=== PATIENT | male | born 1995 | race Caucasian/White ===

== ENCOUNTER 2017-06-25 19:38 | Inpatient (IN) | payer OTHER ==
[2017-06-25] MEDS ORDERED: LORazepam 2 MG/ML INJ IM STA (20:32)
--- NOTE | 2017-06-25 20:51 | ED ---
Psych HPI - General Chief Complaint: Psychiatric Symptoms Stated Complaint: Mental Health Time Seen by Provider: 06/25/17 19:53 Source: patient Mode of arrival: ambulatory - History of Present Illness Initial Comments: Is a 21-year-old male who presents emergency department for depression and suicidal ideation. The patient states is been dealing with depression for most of his life and has had thoughts of killing himself most of his life however recently it became worse. His girlfriend called the police today because she was having thoughts of wanting to jump off a bridge into the patient states that he did smoke marijuana and drinking today. He states that nothing seemed to just trigger this. He states he just feels very depressed from life and that he wants to end his life. Denies any history of being seen by psychiatrist. No inpatient hospitalizations. No other acute complaints at this time. - Related Data Home Medications Medication Instructions Recorded Confirmed Lansoprazole (Unknown Dose) 1 tab PO DAILY 06/25/17 06/25/17 Allergies Allergy/AdvReac Type Severity Reaction Status Date / Time No Known Allergies Allergy Verified 06/25/17 20:07 Review of Systems ROS Statement: Those systems with pertinent positive or pertinent negative responses have been documented in the HPI. ROS Other: All systems not noted in ROS Statement are negative. Past Medical History Additional Past Medical History / Comment(s): cysts History of Any Multi-Drug Resistant Organisms: None Reported Past Surgical History: No Surgical Hx Reported Past Psychological History: No Psychological Hx Reported Smoking Status: Current every day smoker Past Alcohol Use History: Heavy Past Drug Use History: Marijuana General Exam - General Exam Comments Initial Comments: Constitutional: Awake alert Appears comfortable Head: Normocephalic atraumatic Eyes: no conjunctival injection No scleral icterus EOMI Neck: No JVD Supple Heart: Regular rate rhythm normal S1-S2 no murmurs Lungs: Clear to auscultation bilaterally No wheezing No rales Abdomen: Soft nondistended nontender Extremities: Non edematous DP pulses intact Radial pulses intact Neuro: A&Ox3 No focal neurologic deficits Psych: The patient is depressed, suicidal Limitations: no limitations Course Vital Signs 06/25/17 19:45 Temperature 98.0 F Pulse Rate 83 Respiratory 16 Rate Blood Pressure 141/88 O2 Sat by Pulse 97 Oximetry Medical Decision Making - Medical Decision Making Is a 21-year-old came for depression and suicidal ideation. The patient was evaluated by EPS who will admit the patient under their service. Certification was performed. Further orders per EPS. - Lab Data Lab Results 06/25/17 Range/Units 20:47 Urine Opiates Screen Not Detected (NotDetected) Ur Oxycodone Screen Not Detected (NotDetected) Urine Methadone Screen Not Detected (NotDetected) Ur Propoxyphene Screen Not Detected (NotDetected) Ur Barbiturates Screen Not Detected (NotDetected) U Tricyclic Antidepress Not Detected (NotDetected) Ur Phencyclidine Scrn Not Detected (NotDetected) Ur Amphetamines Screen Not Detected (NotDetected) U Methamphetamines Scrn Not Detected (NotDetected) U Benzodiazepines Scrn Not Detected (NotDetected) Urine Cocaine Screen Not Detected (NotDetected) U Marijuana (THC) Screen Detected H (NotDetected) Disposition Clinical Impression: Depression, Suicidal ideation Disposition: ADMITTED IP TO THIS [facility] Condition: Stable
[2017-06-25 21:13] LABS: Amphetamine Screen,Urine Not Detected (NotDetected); Barbiturate Screen,Urine Not Detected (NotDetected); Benzodiazepines Screen,Urine Not Detected (NotDetected); Cocaine Screen,Urine Not Detected (NotDetected); Methadone Screen, Urine Not Detected (NotDetected); Opiate Screen,Urine Not Detected (NotDetected); Oxycodone Screen, Urine Not Detected (NotDetected); Phencyclidine Screen,Urine Not Detected (NotDetected); Tricyclic Antidepressant,Urine Not Detected (NotDetected); Urn Cannabinoid Scrn Detected (NotDetected)
[2017-06-25] MEDS ORDERED: ZIPRASIDONE 20 MG VIAL IM PRN (21:33)
[2017-06-25] MEDS ORDERED: MAG HYDROX/AL HYDROX/SIMETH 30 ML CUP PO PRN (21:33)
[2017-06-25] MEDS ORDERED: MAGNESIUM HYDROXIDE 2,400 MG/10 ML CUP PO PRN (21:33)
[2017-06-25] MEDS ORDERED: ACETAMINOPHEN TAB 325 MG TAB PO PRN (21:33)
[2017-06-25] MEDS ORDERED: LORazepam 2 MG/ML INJ IM PRN (21:37)
[2017-06-25 22:13] VITALS: RESP 16
--- NOTE | 2017-06-25 22:47 | P.CONS ---
History of Present Illness - Reason for Consult Consult date: 06/25/17 Medical management - Chief Complaint Suicidal - History of Present Illness Patient states that he has been suicidal and he was thinking about that for the last few days patient states that he took a few tablets of ibuprofen not more than 8 tablets and alcohol currently is not having chest pain or shortness of breath states that he still depressed patient initially was not very cooperative but currently he is cooperative with the exam still tearful Review of systems since systems has been reviewed all negative and positive findings as per HPI Past medical history depression and possible peptic ulcer Social history smokes states that he drinks whenever he can ALLERGIES NO KNOWN DRUG ALLERGIES Surgical history none Constitutional: No acute distress, Eyes: Anicteric sclerae, moist conjunctiva, ENMT: NC/AT Oropharynx clear, no erythema, exudates Neck: Supple, FROM, no masses, or JVD No carotid bruits No thyromegaly Lungs: Clear to auscultation Clear to percussion Normal respiratory effort, no accessory muscle use Cardiovascular: Heart regular in rate and rhythm, No murmurs, gallops, or rubs No peripheral edema Abdominal: Soft Nontender, no guarding, Skin: Normal temperature, tone, texture, turgor No induration No subcutaneous nodules No rash, lesions No ulcers Extremities: No digital cyanosis No clubbing Pedal pulses intact and symmetrical Radial pulses intact and symmetrical Normal gait and station No calf tenderness Psychiatric: Depressed Neuro: Muscles Strength 5/5 in all 4 extremities Sensation to light touch grossly present throughout Cranial nerves II-XII grossly intact No focal sensory deficits Vital Signs - 24 hr 06/25/17 06/25/17 06/25/17 19:45 21:25 22:12 Temperature 98.0 F 97.2 F L Pulse Rate 83 93 Pulse Rate [ 87 Right Sitting Brachial] Respiratory 16 18 16 Rate Blood Pressure 141/88 151/75 Blood Pressure 131/97 [Right Arm Sitting] O2 Sat by Pulse 97 96 100 Oximetry Assessment and plan suicidal currently stable and not agitated very tearful management as primary team Possible history of alcohol abuse currently no signs or symptoms of withdrawal patient may need to be started on withdrawal protocol if needed and if the patient will not be discharged soon Major depression Question about drug overdose patient states he didn't take more than 8 tablets of ibuprofen will check CMP and CBC Past Medical History Additional Past Medical History / Comment(s): cysts History of Any Multi-Drug Resistant Organisms: None Reported Past Surgical History: No Surgical Hx Reported Smoking Status: Current every day smoker Medications and Allergies Home Medications Medication Instructions Recorded Confirmed Type Lansoprazole (Unknown Dose) 1 tab PO DAILY 06/25/17 06/25/17 History Allergies Allergy/AdvReac Type Severity Reaction Status Date / Time No Known Allergies Allergy Verified 06/25/17 22:16 Physical Exam Vitals: Vital Signs Temp Pulse Pulse Resp BP BP Pulse Ox 06/25/17 22:12 97.2 F L 87 16 131/97 100 06/25/17 21:25 93 18 151/75 96 06/25/17 19:45 98.0 F 83 16 141/88 97 Intake and Output 06/25/17 06/25/17 06/25/17 06:59 14:59 22:59 Other: Weight 74.843 kg Results Labs: Abnormal Lab Results - Last 24 Hours (Table) 06/25/17 Range/Units 20:47 U Marijuana (THC) Screen Detected H (NotDetected)
[2017-06-26] MEDS: NICOTINE 14MG/24HR PATCH TRANSDERM SCH ×2 (05:58→09:26)
[2017-06-26 08:24] LABS: Basophils # (A) 0.1 k/uL (0-0.2); Basophils % (A) 1 %; Eosinophils # (A) 0.1 k/uL (0-0.7); Eosinophils % (A) 2 %; HCT 48.8 % (39.0-53.0); HGB 16.5 gm/dL (13.0-17.5); Lymphocytes # (A) 2.2 k/uL (1.0-4.8); Lymphocytes % (A) 34 %; MCH 29.1 pg (25.0-35.0); MCHC 33.8 g/dL (31.0-37.0); MCV 86.1 fL (80.0-100.0); Mean Platelet Volume 7.3; Monocytes # (A) 0.4 k/uL (0-1.0); Monocytes % (A) 7 %; Neutrophils # (A) 3.5 k/uL (1.3-7.7); Neutrophils % (A) 54 %; Platelet Count 177 k/uL (150-450); RBC 5.67 m/uL (4.30-5.90); RDW 12.9 % (11.5-15.5); WBC 6.4 k/uL (3.8-10.6)
[2017-06-26 08:33] LABS: ALT 25 U/L (21-72); AST 20 U/L (17-59); Albumin 4.8 g/dL (3.5-5.0); Alkaline Phosphatase 73 U/L (38-126); Anion Gap 15 mmol/L; Blood Urea Nitrogen 18 mg/dL (9-20); Carbon Dioxide 24 mmol/L (22-30); Chloride 103 mmol/L (98-107); Glucose 111 mg/dL (74-99); Potassium 4.5 mmol/L (3.5-5.1); Sodium 142 mmol/L (137-145); Total Bilirubin 0.6 mg/dL (0.2-1.3); Total Protein 7.9 g/dL (6.3-8.2)
[2017-06-26] MEDS: FLUoxetine HCL 10 MG CAP PO SCH (09:29)
[2017-06-26] MEDS: ARIPiprazole 2 MG TAB PO SCH (09:29)
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
[2017-06-26] MEDS: LORazepam 1 MG TAB PO PRN (17:54)
[2017-06-26] MEDS: MELATONIN 1 MG TAB PO SCH (20:06)
[2017-06-27] MEDS: ARIPiprazole 2 MG TAB PO SCH (08:50)
[2017-06-27] MEDS: FLUoxetine HCL 10 MG CAP PO SCH (08:51)
[2017-06-27] MEDS: NICOTINE 14MG/24HR PATCH TRANSDERM SCH (09:35)
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
[2017-06-27] MEDS: LORazepam 1 MG TAB PO PRN (17:02)
[2017-06-27] MEDS: MELATONIN 1 MG TAB PO SCH (20:37)
[2017-06-28] MEDS: NICOTINE 14MG/24HR PATCH TRANSDERM SCH (08:01)
[2017-06-28] MEDS: ARIPiprazole 2 MG TAB PO SCH (08:02)
[2017-06-28] MEDS: LORazepam 1 MG TAB PO PRN ×2 (08:04→15:18)
[2017-06-28] MEDS: FLUoxetine HCL 10 MG CAP PO SCH (08:04)
--- NOTE | 2017-06-28 12:32 | P.PN ---
Progress Note - Text Progress Note Date: 06/28/17 Interval History: Patient is a 21-year-old male who was seen today and he reports that he is feeling much better. Patient is able to discuss with me his anger, taking people's comments to be directed at him and always in a derogatory negative fashion. Patient and I discussed his abandonment by his mother when he was 4. Patient reports no further suicidal ideation and states that he was initially feeling suicidal on the outside and then it changed his mind but continued to report suicidal thoughts and his plan to get someone's attention. Patient states that he is overly sensitive to people's criticism. Patient reports that he slept about 4 hours last night was able to fall asleep but was not able to stay asleep. Patient also discussed his use of alcohol and marijuana. Patient has been attending groups and he states he's finding them helpful. Patient did report to me that he was hearing voices prior to admission. Mental Status: Appearance/Attitude: Patient is appropriately dressed, makes good eye contact and is cooperative. Behavior: Patient does not exhibit any psychomotor agitation or retardation. Speech/Language: Patient's speech is spontaneous and of normal volume and rhythm and he is coherent Thought Process: Patient is goal-directed there is no evidence of circumstantial or tangential thought and no loose association or flight of ideas Thought Content: Patient denies current auditory or visual hallucinations and no paranoid or delusional ideation is elicited. Patient discussed being overly sensitive to people's comments, getting easily angered when he feels that people are making derogatory or critical comments towards him. Patient discussed his use of alcohol and marijuana to control his anger. Patient reports sleeping about 4 hours last night. He reports his appetite is good. Suicidal/Homicidal Ideation: [Patient denied any current suicidal or homicidal ideation Sensorium/Cognition: Patient is alert and oriented to person, place, and time and his recent and remote memory are grossly intact. Mood/Affect: patient's mood is less depressed, he is less irritable and his affect is appropriate Insight/Judgment: patient's insight and judgment are fair. Assessment: patient today was more accepting of being in the hospital, acknowledging that he is had difficulties taking comments and criticisms becoming easily angered and overreacting. Patient reports no further suicidal ideation and states that he was hearing voices prior to admission but not currently. Patient states that he continues to have difficulty sleeping and is sleeping about 4 hours a night. Patient reports no further angry outbursts, he is accepting of treatment and being in the hospital and feels it is been helpful. Patient states he has started attending groups and activities again and does find them helpful. Plan: patient will continue on Abilify 2 mg and Prozac 10 mg and will increases melatonin to 3 mg at bedtime. Patient and I discussed his overreaction to people's comments, his issues regarding abandonment by his mother when he was 4 years of age and his anger and suicidal thoughts. Patient is more accepting of treatment. We discussed possible discharge on Friday.
[2017-06-28] MEDS: MELATONIN 3 MG TABLET PO SCH (20:01)
[2017-06-29] MEDS: NICOTINE 14MG/24HR PATCH TRANSDERM SCH (08:08)
[2017-06-29] MEDS: ARIPiprazole 2 MG TAB PO SCH (08:08)
[2017-06-29] MEDS: LORazepam 1 MG TAB PO PRN ×2 (08:08→15:04)
[2017-06-29] MEDS: FLUoxetine HCL 10 MG CAP PO SCH (08:08)
[2017-06-29 10:56] LABS: Appearance,Urine Clear (Clear); Bilirubin,Urine Negative (Negative); Blood,Urine Negative (Negative); Color,Urine Yellow; Glucose,Urine (UA) Negative (Negative); Ketones,Urine Negative (Negative); Leukocyte Esterase,Urine Negative (Negative); Nitrite,Urine Negative (Negative); PH, Urine 6.5 (5.0-8.0); Protein,Urine Trace (Negative)
--- NOTE | 2017-06-29 13:31 | P.PN ---
Progress Note - Text Progress Note Date: 06/29/17 Interval History: Patient is a 21-year-old male who was seen today and he reports that he slept about 4 hours last night with the melatonin and fell asleep easier. He slept on and off after that. Patient states that he is not feeling as angry or irritable and had a good visit with his parents and girlfriend last evening. He states he is not having any side effects from the medication. Patient reports he is no longer feeling suicidal and is not hearing voices. He states that he's been attending the groups and activities and is anxious for his discharge. Mental Status: Appearance/Attitude: Patient is casually dressed, makes good eye contact and is cooperative. Behavior: Patient is not exhibiting any psychomotor agitation or retardation. Speech/Language: Speech is spontaneous and normal volume and rhythm and he is coherent. Thought Process: Patient is goal-directed there is no evidence of loose association or flight of ideas. Thought Content: Patient denies auditory or visual hallucinations and no delusions or paranoid ideation were elicited. Patient states he slept about 4 hours last evening had an easier time falling asleep. Patient states his appetite is good. He reports that he is feeling less angry and irritable. Suicidal/Homicidal Ideation: Denies any current suicidal or homicidal ideation. Sensorium/Cognition: Patient is alert and oriented to person, place, and time and his recent and remote memory are grossly intact. Mood/Affect: Patient's mood is brighter and his affect is appropriate Insight/Judgment: Patient's insight and judgment are fair Assessment: Patient reports doing much better, no longer hearing voices and feeling less angry. Patient states he is no longer having suicidal ideation and a visit with his parents and girlfriend last evening went well. His sleep remains restless after about 4 hours but states that he fell asleep easier. Patient reports his appetite is good. Patient is anxious to leave and return home. Patient has been attending groups and activities and participating. Plan: Patient will continue on Prozac 10 mg in the morning and Abilify 2 mg daily and plan his discharge tomorrow after his deferral.
[2017-06-29] MEDS: MELATONIN 3 MG TABLET PO SCH (20:11)
[2017-06-30 06:40] VITALS: BP 136/86; PULSE 99; TEMP 97.9
[2017-06-30] MEDS: ARIPiprazole 2 MG TAB PO SCH (08:28)
[2017-06-30] MEDS: NICOTINE 14MG/24HR PATCH TRANSDERM SCH (08:28)
[2017-06-30] MEDS: FLUoxetine HCL 10 MG CAP PO SCH (08:28)
[2017-06-30] MEDS: LORazepam 1 MG TAB PO PRN (08:29)
--- NOTE | 2017-06-30 11:51 | P.DS ---
Providers Date of admission: 06/25/17 21:27 Expected date of discharge: 06/30/17 Attending physician: Bonnie Coulter MD Consults: 06/25/17 21:33 Consult Physician Routine Consulting Provider: Priya Sinha Consult Reason/Comments: follow up H & P Do you want consulting provider notified?: Yes Primary care physician: Stated None Hospital Course: Discharge Diagnosis: Major depressive disorder, with psychotic features, severe ; marijuana use disorder, alcohol use disorder Reason for Admission: Patient is a 21-year-old male who was texting his girlfriend telling her that he was going to jump off of a bridge, she called his father who went to where the patient was and the patient refused to get out of his car and so the police were called and the patient was brought to the hospital. Patient states that he doesn't want to be alive, doesn't care and states that there is nothing worse than him and anyone around him feels the same and he has been feeling this way his whole life. He states that he's been depressed most of his life due to being abandoned at the age of 4 by his mother. Patient states that he has seen counselors in the past but stopped because he either doesn't want to go or doesn't have the money and states that he has refused medications because "I don't want pills they are chemicals". He states that he doesn't trust hospitals because they'll stick me with needles and will not let me leave. Patient states that he doesn't trust anyone, the government is crooked and people are trying to hurt him referring to anyone and everyone. He states that he hears voices that are telling him he is worthless, to kill himself and do everyone a favor. Patient states that he believes the voices. He states that his peers and told him the same thing that he is worthless and to do them a favor. Patient states he is depressed and wants to be and stated that he dreams every day that he will . Patient states that several days prior to admission he attempted suicide by taking Motrin and alcohol but awakened the next morning. He states that the day of admission he was thinking of jumping off of the bridge, patient states that in the past he tried to cut himself when he was intoxicated with a knife but could not get it open to correctly. Patient states that the voices occur mostly when he is in his room at at night and has panic attacks where he feels disconnected. He states the voices are telling him that "nobody wants me, you're worthless just ". He states that he doesn't want to feel better doesn't want any medication even though his mother, father and girlfriend have all been talking about it. He states that he was given an unknown antidepressant by his primary care physician at some point in the past and he took it for a month but it didn' t work. He reports that he has no friends and does currently work at a [employer]. Patient states that he drinks 3-5 shots of alcohol a day and uses marijuana on a daily basis. Patient states that he's been using alcohol since the age of 14. Patient states he's been using marijuana since the age of 9. Mental status on Admission: Appearance/Attitude: Patient is dressed in a hospital gown, makes no eye contact and is cooperative Behavior: Patient does not exhibit any psychomotor agitation or retardation, patient sits looking down at the floor throughout the interview and appears angry Speech/Language: Patient's speech is spontaneous of normal volume and rhythm and he is coherent. Thought Process: Patient is goal-directed, there is no evidence of loose association or flight of ideas and he is not circumstantial or tangential. Patient has difficulty describing incidents that occurred in the past and there is conflicting information. Thought Content: Patient states that he hears voices that tell him that he is worthless, telling him to kill himself and he would be doing everyone a favor, he denies visual hallucinations. Patient states that he feels everyone was trying to hurt him but cannot give me a reason for this. When asked about thought insertion and thought broadcasting patient stated "I ain't an X man". Patient states that he's been depressed all his life, has wanted to be all his life and doesn't care. He states that he is worthless, doesn't trust hospitals or the government. He states that he doesn't want to take medications because they are chemicals and he wants only natural substances. He stated that hospitals don't let anyone leave and sticking people with needles. Patient states he doesn't sleep well the voices are worse when he is sleeping and states that his appetite is so-so. Suicidal/Homicidal Ideation: Patient states that he tried to commit suicide several days ago by taking Motrin and alcohol and then had thoughts of jumping off a bridge yesterday, he states that he won't act while he is in the hospital but continues to verbalize that he wants to and denies any homicidal ideation at this time Sensorium/Cognition: Patient is alert and oriented to person, place, and time and his recent and remote memory are grossly intact Mood/Affect: Patient's mood is angry and depressed and his affect is blunted Insight/Judgment: Patient's insight and judgment are limited Hospital Course: Patient was admitted on an involuntary basis as he refused medications, refused the need for treatment, he was placed on routine observation and group and activity therapy were ordered. Patient was also ordered routine laboratory studies as well as a medical consultation. Patient was later agreeable to taking medications and was started on Abilify 2 mg and Prozac 10 mg. Patient after the first day thought that he had learned everything he needed to and was pleading and begging to be discharged. Patient stated that he learned all the new coping strategies that he needed and was not going to attend groups any further. Patient denied a reported that he was feeling much better, less irritable, the voices had stopped and he was no longer as angry as he had been. Patient states he was no longer feeling suicidal and started attending groups and activities again. Patient states that he was sleeping fairly well at night with the addition of melatonin 3 mg. Patient was able to begin to discuss his feelings of abandonment, his being very sensitive to comments by others and taking everything anyone said personally as well as in a negative fashion. Patient states that he has always felt that comments made towards him are always negative. Patient was attending groups and activities and was participating. Patient reported no side effects from the medication and stated that he was feeling much better, sleeping and feeling rested in the morning, no longer feeling on edge and angry and reported no suicidal or homicidal thoughts. Patient states the voices stopped. Patient was eating well. Patient declined any referrals for outpatient or inpatient alcohol and drug rehab. Patient felt that he was ready for discharge. Allergies No Known Allergies Allergy (Verified 06/25/17 22:16) Laboratory Last Values WBC 6.4 k/uL (3.8-10.6) 06/26/17 07:50 RBC 5.67 m/uL (4.30-5.90) 06/26/17 07:50 Hgb 16.5 gm/dL (13.0-17.5) 06/26/17 07:50 Hct 48.8 % (39.0-53.0) 06/26/17 07:50 MCV 86.1 fL (80.0-100.0) 06/26/17 07:50 MCH 29.1 pg (25.0-35.0) 06/26/17 07:50 MCHC 33.8 g/dL (31.0-37.0) 06/26/17 07:50 RDW 12.9 % (11.5-15.5) 06/26/17 07:50 Plt Count 177 k/uL (150-450) 06/26/17 07:50 Neutrophils % 54 % 06/26/17 07:50 Lymphocytes % 34 % 06/26/17 07:50 Monocytes % 7 % 06/26/17 07:50 Eosinophils % 2 % 06/26/17 07:50 Basophils % 1 % 06/26/17 07:50 Neutrophils # 3.5 k/uL (1.3-7.7) 06/26/17 07:50 Lymphocytes # 2.2 k/uL (1.0-4.8) 06/26/17 07:50 Monocytes # 0.4 k/uL (0-1.0) 06/26/17 07:50 Eosinophils # 0.1 k/uL (0-0.7) 06/26/17 07:50 Basophils # 0.1 k/uL (0-0.2) 06/26/17 07:50 Sodium 142 mmol/L (137-145) 06/26/17 07:50 Potassium 4.5 mmol/L (3.5-5.1) 06/26/17 07:50 Chloride 103 mmol/L (98-107) 06/26/17 07:50 Carbon Dioxide 24 mmol/L (22-30) 06/26/17 07:50 Anion Gap 15 mmol/L 06/26/17 07:50 BUN 18 mg/dL (9-20) 06/26/17 07:50 Creatinine 0.95 mg/dL (0.66-1.25) 06/26/17 07:50 Est GFR (CKD-EPI)AfAm >90 (>60 ml/min/1.73 sqM) 06/26/17 07:50 Est GFR (CKD-EPI)NonAf >90 (>60 ml/min/1.73 sqM) 06/26/17 07:50 Glucose 111 mg/dL (74-99) H 06/26/17 07:50 Calcium 10.0 mg/dL (8.4-10.2) 06/26/17 07:50 Total Bilirubin 0.6 mg/dL (0.2-1.3) 06/26/17 07:50 AST 20 U/L (17-59) 06/26/17 07:50 ALT 25 U/L (21-72) 06/26/17 07:50 Alkaline Phosphatase 73 U/L (38-126) 06/26/17 07:50 Total Protein 7.9 g/dL (6.3-8.2) 06/26/17 07:50 Albumin 4.8 g/dL (3.5-5.0) 06/26/17 07:50 TSH 1.370 mIU/L (0.465-4.680) 06/26/17 07:50 Urine Color Yellow 06/29/17 10:44 Urine Appearance Clear (Clear) 06/29/17 10:44 Urine pH 6.5 (5.0-8.0) 06/29/17 10:44 Ur Specific [place] 1.020 (1.001-1.035) 06/29/17 10:44 Urine Protein Trace (Negative) H 06/29/17 10:44 Urine Glucose (UA) Negative (Negative) 06/29/17 10:44 Urine Ketones Negative (Negative) 06/29/17 10:44 Urine Blood Negative (Negative) 06/29/17 10:44 Urine Nitrite Negative (Negative) 06/29/17 10:44 Urine Bilirubin Negative (Negative) 06/29/17 10:44 Urine Urobilinogen 2.0 mg/dL (<2.0) 06/29/17 10:44 Ur Leukocyte Esterase Negative (Negative) 06/29/17 10:44 Urine Opiates Screen Not Detected (NotDetected) 06/25/17 20:47 Ur Oxycodone Screen Not Detected (NotDetected) 06/25/17 20:47 Urine Methadone Screen Not Detected (NotDetected) 06/25/17 20:47 Ur Propoxyphene Screen Not Detected (NotDetected) 06/25/17 20:47 Ur Barbiturates Screen Not Detected (NotDetected) 06/25/17 20:47 U Tricyclic Antidepress Not Detected (NotDetected) 06/25/17 20:47 Ur Phencyclidine Scrn Not Detected (NotDetected) 06/25/17 20:47 Ur Amphetamines Screen Not Detected (NotDetected) 06/25/17 20:47 U Methamphetamines Scrn Not Detected (NotDetected) 06/25/17 20:47 U Benzodiazepines Scrn Not Detected (NotDetected) 06/25/17 20:47 Urine Cocaine Screen Not Detected (NotDetected) 06/25/17 20:47 U Marijuana (THC) Screen Detected (NotDetected) H 06/25/17 20:47 Discharge Mental Status: Appearance/Attitude: Patient is appropriately dressed, makes good eye contact and is cooperative. Behavior: Patient does not exhibit any psychomotor agitation or retardation. Speech/Language: Patient's speech is spontaneous of normal volume and rhythm and he is coherent. Thought Process: Patient is goal-directed there is no evidence of loose association or flight of ideas. Thought Content: Patient denies auditory or visual hallucinations and no delusions or paranoid ideation or elicited. Patient is able to discuss his anger, feelings of abandonment and overly sensitive response to people's comments. Patient states he was sleeping and eating well. He reports that he is no longer feeling as angry and irritable as he was on admission. States that he no longer feels hopeless and is trying to focus on positive aspects of his life. Suicidal/Homicidal Ideation: Patient denied any current suicidal or homicidal ideation. Sensorium/Cognition: Patient is alert and oriented to person, place, and time and his recent and remote memory are grossly intact. Mood/Affect: Patient's mood is pleasant and his affect is appropriate Insight/Judgment: Patient's insight and judgment are fair and improved Risk Assessment: Patient's risk for self harm remains moderate, due to prior history of drug and alcohol use, poor coping skills Discharge Plan: Patient will be discharged and will return to live with his parents. Patient will continue on Abilify 2 mg in the morning and Prozac 10 mg in the morning as well as melatonin 3 mg at bedtime. Patient and I discussed the need for him to avoid any alcohol or marijuana. Patient declined nicotine patches stating he'll return to smoking but will try to stop it the near future. Patient states that he is interested in returning to work. Patient was encouraged to continue with his medications and his outpatient follow-up. Patient Condition at Discharge: Stable Plan - Discharge Summary New Discharge Prescriptions: New ARIPiprazole [Abilify] 2 mg PO DAILY #14 tab FLUoxetine HCL [PROzac] 10 mg PO DAILY #14 cap Melatonin 3 mg PO HS tablet Continue Lansoprazole [Prevacid] 15 mg PO DAILY Discharge Medication List Lansoprazole [Prevacid] 15 mg PO DAILY 06/26/17 [History] ARIPiprazole [Abilify] 2 mg PO DAILY #14 tab 06/30/17 [Rx] FLUoxetine HCL [PROzac] 10 mg PO DAILY #14 cap 06/30/17 [Rx] Melatonin 3 mg PO HS tablet 06/30/17 [Rx] Follow up Appointment(s)/Referral(s): [facility] [Outside] - 1-2 Days (walk in intake today until 3pm friday 1030 - 5pm friday 830 - 3pm) [facility] [NON-STAFF] - 1 Week Patient Instructions/Handouts: How to Stop Smoking (GEN) Activity/Diet/Wound Care/Special Instructions: Keep your follow up appointments as scheduled. Continue medications as prescribed. No alcohol or street drugs. No guns or weapons. Crisis line if needed . Discharge Disposition: HOME SELF-CARE
== END 2017-06-30 15:58 | disposition home or self-care (01) | DRG 885 ==
LOC: EC 19:38 → 3MHU 21:27
PROVIDERS: ADMIT Psychiatry & Neurology Psychiatry; ATTEND Psychiatry & Neurology Psychiatry
DX: F32.3 Major depressive disorder, single episode, severe with psychotic features (principal); R45.851 Suicidal ideations; F41.0 Panic disorder [episodic paroxysmal anxiety]; F12.20 Cannabis dependence, uncomplicated; F17.210 Nicotine dependence, cigarettes, uncomplicated; Z62.810 Personal history of physical and sexual abuse in childhood; G47.9 Sleep disorder, unspecified; F10.10 Alcohol abuse, uncomplicated; Z79.899 Other long term (current) drug therapy; Z91.5 Personal history of self-harm
CPT/HCPCS: 80053; 80306; 81003; 82075; 84443; 85025; 96372; 99285

== ENCOUNTER 2018-07-21 10:34 | Emergency (ER) | payer BC ==
[2018-07-21 10:46] VITALS: TEMP 98.1
--- NOTE | 2018-07-21 11:27 | ED ---
Back Pain HPI - General Chief Complaint: Back Pain/Injury Stated Complaint: back pain Time Seen by Provider: 07/21/18 10:48 Source: patient Limitations: no limitations - History of Present Illness Initial Comments: Patient is a 22-year-old male presenting to the emergency department with left- sided back pain. Patient states the pain started 2 days ago and has progressively gotten worse. He has been taking ibuprofen and a muscle relaxer to relieve the pain with minimal improvement. Patient states the pain is constant with no radiation. Patient states that pain is exacerbated with rotation of the back. He states the pain is not improved with either standing or laying down. Patient denies fever, urinary incontinence, saddle paresthesias, radiation to the lower extremities. Patient denies any muscle weakness, numbness, tingling. Patient denies frequency, urgency, dysuria or blood in urine. Patient denies nausea vomiting or diarrhea. - Related Data Home Medications Medication Instructions Recorded Confirmed Lansoprazole [Prevacid] 15 mg PO DAILY PRN 06/26/17 07/21/18 Allergies Allergy/AdvReac Type Severity Reaction Status Date / Time No Known Allergies Allergy Verified 07/21/18 11:05 Review of Systems ROS Statement: Those systems with pertinent positive or pertinent negative responses have been documented in the HPI. ROS Other: All systems not noted in ROS Statement are negative. Past Medical History Additional Past Medical History / Comment(s): Acid reflux, insomnia, major depression History of Any Multi-Drug Resistant Organisms: None Reported Past Surgical History: No Surgical Hx Reported Past Psychological History: Depression Smoking Status: Current every day smoker Past Alcohol Use History: Daily, Occasional Past Drug Use History: Marijuana - Past Family History Mother Additional Family Medical History / Comment(s): Denies any history of hypertension, dyslipidemia, myocardial infarction, and stroke in grandparents, mother, father General Exam Limitations: no limitations General appearance: alert, anxious Head exam: Present: atraumatic, normocephalic, normal inspection Eye exam: Present: normal appearance, PERRL, EOMI. Absent: scleral icterus, conjunctival injection Neck exam: Present: normal inspection Respiratory exam: Present: normal lung sounds bilaterally. Absent: respiratory distress, wheezes, rales, rhonchi, stridor Cardiovascular Exam: Present: regular rate, normal rhythm, normal heart sounds GI/Abdominal exam: Present: soft, tenderness (Left upper lower quadrant), normal bowel sounds. Absent: distended, guarding, rebound, rigid, pulsatile mass Back exam: Present: normal inspection, full ROM, tenderness, CVA tenderness (L). Absent: muscle spasm, vertebral tenderness, rash noted Neurological exam: Present: alert, oriented X3 Psychiatric exam: Present: normal affect, normal mood, anxious Skin exam: Present: warm Course Vital Signs 07/21/18 10:42 Temperature 98.1 F Pulse Rate 70 Respiratory 18 Rate Blood Pressure 118/71 O2 Sat by Pulse 96 Oximetry Medical Decision Making - Medical Decision Making Patient is a 22-year-old male presenting to the emergency department with left- sided back pain. On physical examination patient was found to have abdominal left upper and lower quadrant tenderness. CBC, CMP, UA and KUB were ordered. Labs and imaging were unremarkable. Patient advised to follow up with primary care and obtain referral physical therapy if symptoms continue to persist. Patient advised to return to the emergency department if symptoms worsen. Case discussed with physician.. - Lab Data Result diagrams: 07/21/18 11:15 07/21/18 11:15 Lab Results 07/21/18 07/21/18 07/21/18 Range/Units 11:15 11:15 11:15 WBC 7.4 (3.8-10.6) k/uL RBC 5.36 (4.30-5.90) m/uL Hgb 16.5 (13.0-17.5) gm/dL Hct 48.8 (39.0-53.0) % MCV 91.0 (80.0-100.0) fL MCH 30.7 (25.0-35.0) pg MCHC 33.8 (31.0-37.0) g/dL RDW 14.4 (11.5-15.5) % Plt Count 197 (150-450) k/uL Neutrophils % 49 % Lymphocytes % 39 % Monocytes % 5 % Eosinophils % 3 % Basophils % 1 % Neutrophils # 3.6 (1.3-7.7) k/uL Lymphocytes # 2.9 (1.0-4.8) k/uL Monocytes # 0.4 (0-1.0) k/uL Eosinophils # 0.2 (0-0.7) k/uL Basophils # 0.1 (0-0.2) k/uL Sodium 141 (137-145) mmol/L Potassium 4.8 (3.5-5.1) mmol/L Chloride 106 (98-107) mmol/L Carbon Dioxide 26 (22-30) mmol/L Anion Gap 9 mmol/L BUN 16 (9-20) mg/dL Creatinine 0.90 (0.66-1.25) mg/dL Est GFR (CKD-EPI)AfAm >90 (>60 ml/min/1.73 sqM) Est GFR (CKD-EPI)NonAf >90 (>60 ml/min/1.73 sqM) Glucose 82 (74-99) mg/dL Calcium 10.1 (8.4-10.2) mg/dL Total Bilirubin 0.5 (0.2-1.3) mg/dL AST 24 (17-59) U/L ALT 32 (21-72) U/L Alkaline Phosphatase 65 (38-126) U/L Total Protein 8.1 (6.3-8.2) g/dL Albumin 4.9 (3.5-5.0) g/dL Urine Color Yellow Urine Appearance Clear (Clear) Urine pH 6.5 (5.0-8.0) Ur Specific [place] 1.033 (1.001-1.035) Urine Protein 1+ H (Negative) Urine Glucose (UA) Negative (Negative) Urine Ketones Negative (Negative) Urine Blood Negative (Negative) Urine Nitrite Negative (Negative) Urine Bilirubin Negative (Negative) Urine Urobilinogen 3.0 (<2.0) mg/dL Ur Leukocyte Esterase Negative (Negative) Urine WBC 2 (0-5) /hpf Ur Squamous Epith Cells <1 (0-4) /hpf Urine Mucus Many H (None) /hpf Disposition Clinical Impression: Mechanical back pain Disposition: HOME SELF-CARE Condition: Stable Additional Instructions: Please take muscle relaxers as prescribed. Use Tylenol or ibuprofen for pain control. Please follow up primary care and obtain referral to physical therapy. Please return to the Emergency Department if symptoms worsen or any other concerns. Is patient prescribed a controlled substance at d/c from ED?: No Referrals: Della Jett MD [Primary Care Provider] - 1-2 days Time of Disposition: 11:56
[2018-07-21 11:30] LABS: Basophils # (A) 0.1 k/uL (0-0.2); Basophils % (A) 1 %; Eosinophils # (A) 0.2 k/uL (0-0.7); Eosinophils % (A) 3 %; HCT 48.8 % (39.0-53.0); HGB 16.5 gm/dL (13.0-17.5); Lymphocytes # (A) 2.9 k/uL (1.0-4.8); Lymphocytes % (A) 39 %; MCH 30.7 pg (25.0-35.0); MCHC 33.8 g/dL (31.0-37.0); Mean Platelet Volume 7.5; Monocytes # (A) 0.4 k/uL (0-1.0); Monocytes % (A) 5 %; Neutrophils # (A) 3.6 k/uL (1.3-7.7); Neutrophils % (A) 49 %; Platelet Count 197 k/uL (150-450); RBC 5.36 m/uL (4.30-5.90); RDW 14.4 % (11.5-15.5); WBC 7.4 k/uL (3.8-10.6)
--- NOTE | 2018-07-21 11:31 | XR ---
EXAMINATION TYPE: XR KUB DATE OF EXAM: 07/21/2018 11:25 AM CLINICAL HISTORY: Left posterior flank pain for a couple of days. TECHNIQUE: Single upright image of the abdomen is obtained. COMPARISON: None. FINDINGS: Scattered gas is seen in nondilated small bowel loops. Gas and fecal material is seen in no ndilated colon. There is no visceromegaly, pneumoperitoneum, or abnormal calcification appreciated. T he lung bases are clear and the osseous structures are intact. IMPRESSION: Nonobstructive bowel gas pattern.
[2018-07-21 11:33] LABS: Appearance,Urine Clear (Clear); Bilirubin,Urine Negative (Negative); Blood,Urine Negative (Negative); Color,Urine Yellow; Glucose,Urine (UA) Negative (Negative); Ketones,Urine Negative (Negative); Leukocyte Esterase,Urine Negative (Negative); Mucus,Urine Many /hpf; Nitrite,Urine Negative (Negative); PH, Urine 6.5 (5.0-8.0); Protein,Urine 1+ (Negative); Specific Gravity,Urine 1.033 (1.001-1.035); Squamous Epithelial Cell,Urine <1 /hpf (0-4); WBC,Urine 2 /hpf (0-5)
[2018-07-21 11:37] LABS: ALT 32 U/L (21-72); AST 24 U/L (17-59); Albumin 4.9 g/dL (3.5-5.0); Alkaline Phosphatase 65 U/L (38-126); Anion Gap 9 mmol/L; Blood Urea Nitrogen 16 mg/dL (9-20); Calcium 10.1 mg/dL (8.4-10.2); Carbon Dioxide 26 mmol/L (22-30); Chloride 106 mmol/L (98-107); Glucose 82 mg/dL (74-99); Potassium 4.8 mmol/L (3.5-5.1); Sodium 141 mmol/L (137-145); Total Bilirubin 0.5 mg/dL (0.2-1.3); Total Protein 8.1 g/dL (6.3-8.2)
[2018-07-21 12:42] VITALS: BP 120/70; PULSE 71; RESP 16
== END 2018-07-21 12:51 | disposition home or self-care (01) ==
LOC: EC 10:34
DX: M54.9 Dorsalgia, unspecified (principal); R10.814 Left lower quadrant abdominal tenderness; R10.812 Left upper quadrant abdominal tenderness; F17.200 Nicotine dependence, unspecified, uncomplicated
CPT/HCPCS: 36415; 74018; 80053; 81001; 85025; 99283